=== PATIENT | female | born 1935 | race Hispanic/Latino ===

== ENCOUNTER → 2017-01-19 | Outpatient (CLI) | payer MEDICARE, MEDICAID | LOC: GMAH 11:36 | PROVIDERS: ATTEND Family Medicine | DX: E03.9 Hypothyroidism, unspecified (principal) ==

== ENCOUNTER 2018-01-26 15:23 | Inpatient (IN) | payer MEDICARE, MEDICAID ==
--- NOTE | 2018-01-26 15:32 | ED.PDOC ---
History of Present Illness - General Chief Complaint: General Stated Complaint: diarrhea/feeling weak Time Seen by Provider: 01/26/18 15:31 Source: patient, family - daughter Exam Limitations: no limitations - History of Present Illness Initial Comments: Noris Weiss 82 y/o female stated that she started having watery diarrhea 2 -3x since monday which had been ongoing till she was seen in er today.Had also N /V starting yesterday and unable to keep anything down today getting weak and with chills and fever.Went to her Md's clinic and was advised to come to er.No recent antibiotic use ,no ill contact,no foreign travel. Timing/Duration: other - see hpi Severity: moderate Improving Factors: nothing Worsening Factors: eating Associated Symptoms: headaches, other - see hpi Allergies/Adverse Reactions: Allergies NO KNOWN ALLERGY Allergy (Unverified 06/14/14 18:14) Home Medications: Ambulatory Orders Oseltamivir Capsule [Tamiflu] 75 mg PO BID #10 cap 08/28/14 Cyclobenzaprine HCl [Flexeril] 10 mg PO TID #15 tab 01/05/15 Naproxen [Naprosyn] 500 mg PO BID #30 tab 01/05/15 Tramadol HCl [Ultram] 50 mg PO Q6H #20 tab 01/05/15 Review of Systems - Review of Systems Constitutional: States: see HPI, chills, fever, malaise EENTM: States: no symptoms reported Respiratory: States: no symptoms reported Cardiology: States: no symptoms reported Gastrointestinal/Abdominal: States: see HPI Genitourinary: States: no symptoms reported Musculoskeletal: States: no symptoms reported All other Systems: Reviewed and Negative, No Change from Baseline Past Medical History (General) - Patient Medical History Hx Seizures: No Hx Stroke: No Hx Dementia: No Hx Asthma: Yes Hx of COPD: No Hx Cardiac Disorders: Yes Hx Congestive Heart Failure: No Hx Pacemaker: No Hx Hypertension: Yes Hx Thyroid Disease: Yes Hx Diabetes: No Hx Gastroesophageal Reflux: No Hx Renal Disease: No Hx of HIV: No Hx MRSA: No Surgical History: other - knee - Vaccination History Hx Influenza Vaccination: Yes - Social History Hx Tobacco Use: Yes Hx Alcohol Use: No - Female History Patient : No Family Medical History - Family History Mother Family History: No Known Hx Family Diabetes: Yes - multiple family memebers Hx Family Cancer: Yes - breast-aunts Physical Exam - Physical Exam General Appearance: Alert, Comfortable, No apparent distress Eye Exam: bilateral normal Ears, Nose, Throat: hearing grossly normal, normal ENT inspection Respiratory: lungs clear, normal breath sounds Cardiovascular/Chest: normal peripheral pulses, regular rate, rhythm, no murmur Peripheral Pulses: radial,right: 2+, radial,left: 2+ Gastrointestinal/Abdominal: non tender, soft, no organomegaly Back Exam: no CVA tenderness, no vertebral tenderness Extremity: no pedal edema, no calf tenderness Neurologic: alert, oriented x 3 Skin Exam: normal color, warm/dry Progress - Progress Progress: 01/26/18 15:50 Vital Signs - 8 hr 01/26/18 15:35 Temperature 98.4 F Pulse Rate [ 74 Left Brachial] Respiratory 20 Rate Blood Pressure 107/54 [Left Arm] O2 Sat by Pulse 97 Oximetry - Results/Orders Results/Orders: 01/26/18 15:41 CLOSTRIDIUM DIFFICILE AG/TOXIN Urgent URINALYSIS Stat 01/26/18 16:27 Magnesium Sulfate Premix 2Gm 2 gm Premix Bag 1 bag IVPB ONCE Laboratory Results - last 24 hr 01/26/18 01/26/18 01/26/18 15:52 15:52 15:52 WBC 16.4 H RBC 3.89 L Hgb 11.6 L Hct 35.1 L MCV 90.3 MCH 29.8 MCHC 33.0 RDW 13.4 Plt Count 133 MPV 10.2 Absolute Neuts (auto) 14.70 H Absolute Lymphs (auto) 0.70 L Absolute Monos (auto) 0.90 H Absolute Eos (auto) 0.10 Absolute Basos (auto) 0.00 Neutrophils % 89.9 H Lymphocytes % 4.3 L Monocytes % 5.3 Eosinophils % 0.4 L Basophils % 0.1 PT 13.5 H INR 1.170 PTT (SP) 43.1 H Sodium 132 L Potassium 4.3 Chloride 103 Carbon Dioxide 20 L Anion Gap 13.3 BUN 33 H Creatinine 1.73 H BUN/Creatinine Ratio 19.1 Random Glucose 100 Serum Osmolality 271.9 L Lactic Acid 0.9 Calcium 8.5 Magnesium 1.0 L Total Bilirubin 1.4 H Direct Bilirubin 0.2 Indirect Bilirubin 1.2 H AST 20 ALT 17 Alkaline Phosphatase 45 Creatine Kinase 118 CK-MB (CK-2) 3.9 CK-MB (CK-2) % Not Reportable Troponin I < 0.02 Serum Total Protein 6.7 Albumin 3.5 Lipase 25 Departure - Departure Clinical Impression: Dehydration, moderate, Hypomagnesemia Nausea & vomiting Qualifiers: Vomiting type: unspecified Vomiting Intractability: unspecified Qualified Code( s): R11.2 - Nausea with vomiting, unspecified Diarrhea Qualifiers: Diarrhea type: unspecified type Qualified Code(s): R19.7 - Diarrhea, unspecified Time of Disposition: 16:58 Disposition: Admit Patient Condition: Fair Departure Forms: Patient Portal Self Enrollment Referrals: Brett De Santiago MD [Primary Care Provider] - 1-2 Weeks Home Medications: Ambulatory Orders Oseltamivir Capsule [Tamiflu] 75 mg PO BID #10 cap 08/28/14 Cyclobenzaprine HCl [Flexeril] 10 mg PO TID #15 tab 01/05/15 Naproxen [Naprosyn] 500 mg PO BID #30 tab 01/05/15 Tramadol HCl [Ultram] 50 mg PO Q6H #20 tab 01/05/15 Decision To Admit - Decistion To Admit Decision to Admit Reason: Admit from ER Decision to Admit Date: 01/26/18 - D/W Davis Duenas-ANP/Hospitalist Decision to Admit Time: 16:56
[2018-01-26] MEDS ORDERED: SODIUM CHLORIDE 0.9% 500ML 500 ML IVS ONE (15:41)
[2018-01-26] MEDS ORDERED: ACETAMINOPHEN 325 MG TAB PO ONE (16:02)
[2018-01-26] MEDS ORDERED: PROMETHAZINE HCL 25 MG TAB PO ONE (16:02)
[2018-01-26] MEDS ORDERED: MAGNESIUM SULFATE PREMIX 2GM 2 GM in PREMIX BAG 1 BAG IVPB ONE ×2 (16:27→20:25)
[2018-01-26] MEDS ORDERED: MAGNESIUM SULFATE PREMIX 2GM 50 ML IVPB ONE ×2 (16:31→20:32)
[2018-01-26] MEDS ORDERED: SODIUM CHLORIDE 0.9% 1000ML 1,000 ML IVS PRN (16:58)
--- NOTE | 2018-01-26 17:14 | HP ---
SUPERVISING PHYSICIAN: Shakir Preciado M.D. CHIEF COMPLAINT: Weakness and diarrhea. HISTORY OF PRESENT ILLNESS: Ms. Weiss is an 82 year-old female reports that she has been having some diarrhea and nausea over the last 4 to 5 days. Monday she started having some vomiting along with diarrhea. She took an Imodium on Monday, felt better on Monday but then again had the recurrence of the same symptoms on Monday. She has continued to have nausea and vomiting on and off for the rest of the week and is unable to keep any significant oral intake down, and has been getting significantly weaker with muscle cramps as well as significantly decreased urine output. She went to the after hours clinic at [facility] and was advised to go to the E. R. for further evaluation. She has not been on any recent antibiotics and denies any family ill contacts with family or friends, and has not had any extensive travel. Initial workup in the E. R. showed that she did have a mild leukocytosis with a white count of 16,400 and a left shift. Chemistries showed a mild hyponatremia with sodium 132, carbon dioxide 20, anion gap was normal at 13, BUN was elevated as well as creatinine with creatinine of 1.73, BUN 33. Magnesium was significantly low at 1.0 with a mildly elevated bilirubin of 1.4 with indirect being 1.2. All other liver functions were otherwise within normal limits as well as lipase. Lactic acid was also within normal limits. She was given a liter of fluids in the E. R. and is now going to be placed in Observation for further treatment and evaluation of dehydration likely secondary to viral gastritis. She was placed in Observation in stable condition. PAST MEDICAL HISTORY: 1. Hypothyroidism on supplementation. 2. Hypertension. 3. Asthma. PAST SURGICAL HISTORY: 1. Hysterectomy. 2. Gastric tumor removal, nonmalignant. 3. 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 HOME MEDICATIONS: 1. Ventolin inhaler 1 puff p.r.n. 2. Levothyroxine 150 mcg daily. 3. Losartan Hydrochlorothiazide 160-25 mg one daily. 4. Carvedilol 3.125 mg b.i.d. 5. Aleve 2 tablets at bedtime. ALLERGIES: NO KNOWN DRUG ALLERGIES. FAMILY HISTORY: Significant for breast cancers, heart attacks, hypertension and diabetes. SOCIAL HISTORY: The patient is . She lives alone in [place]. She did smoke in her younger age but has not smoked for well over 25 years as well as she quit drinking at the same time which was approximately 20 years previously. REVIEW OF SYSTEMS: CONSTITUTIONAL: Notes that she has had a subjective fever, some chills and general malaise as noted in History of Present Illness. HEENT: Denies any headaches, sore throat, nasal congestion or ear aches, but notes that she has had a mild headache today. RESPIRATORY: Denies any shortness of breath, wheezing or cough. CARDIOVASCULAR: No chest pains, palpitations, syncopal episodes or edema. GASTROINTESTINAL: As noted in History of Present Illness, nausea, vomiting and diarrhea. Last reported 24 hours prior to admission. GENITOURINARY: No dysuria, but notes that she has not been going as frequently as she normally does, but no reported hematuria, nocturia or other urinary symptoms. NEUROLOGIC: Denies any ataxia, seizures, or other neurological deficits. PHYSICAL EXAMINATION: VITAL SIGNS: Temperature 98.4 on admission, pulse 74, blood pressure 107/54, respirations 20, satting 97% on room air. Admission weight was 82.9 kg. GENERAL: The patient does appear acutely ill but is in no apparent distress, resting comfortably. HEENT: Tympanic membranes were clear bilaterally. Oropharynx was pink with dry mucosal membranes. No lesions. NECK: Supple, non-tender with full range of motion. No jugular venous distention. CHEST: Lungs were clear to auscultation without any rhonchi, wheezing or rales. CARDIOVASCULAR: Regular rate and rhythm without appreciable murmurs, gallops, or rubs. BACK: She had no CVA tenderness. ABDOMEN: Soft, non-tender with positive bowel sounds. EXTREMITIES: There is no edema, clubbing or cyanosis. NEUROLOGIC: She was alert and oriented times three with no noted weaknesses. LABORATORY: CBC showed a white count of 16,400, hemoglobin 11.6, hematocrit 35.1, platelet count 133 with a differential that showed a left shift. Coagulation studies showed a slightly elevated PT of 13.5, PTT was elevated at 43.1, INR normal at 1.17. Chemistries showed a mild hyponatremia at 132, potassium normal at 4.3, carbon dioxide was low at 20, anion gap was normal at 13.3. BUN was elevated at 33, creatinine 1.73, glucose 100, serum osmolality 271, lactic acid 0.9, calcium normal at 8.5, magnesium was low at 1.0. Total bilirubin was elevated at 1.4 with a direct bilirubin of 1.2. AST, ALT and alkaline phosphatase were both normal. Troponin less than 0.02. Lipase was normal at 25. Urinalysis was pending at time of admission. TSH is pending. RADIOLOGY: Chest x-ray pending at time of admission. ASSESSMENT: 1. Moderate dehydration secondary gastroenteritis likely viral in origin with the patient having poor oral intake. 2. Leukocytosis without an identified infectious source, likely secondary to acute cystitis - UA pending 3. Electrolyte imbalance to include hyponatremia and a severe hypomagnesemia secondary to diarrhea associated with viral gastroenteritis 4. Prerenal azotemia with renal insufficiency resulting from volume depletion with exacerbation due to chronic use of NSAIDs. 5. Hypothyroidism on supplementation. 6. Asthma without any signs of exacerbation. 7. Hypertension, well controlled. PLAN: The patient is going to be placed in Observation status tonight for fluid replacement. Will give her another liter of normal saline and follow this with maintenance fluids of D5 normal saline with 20 of potassium at 125 an hour. Will await her urine to further assess for possible urinary tract infection given that she does have a leukocytosis, but a normal lactic acid. Should she show urine that shows a urinary tract infection, then we will start her on antibiotics but will hold off on any antibiotics until we get that urine completed. She did get 2 grams of magnesium initially in the E. R. I will follow this up with additional 2 grams of magnesium given that she had a significantly low magnesium of 1.0 at time of admission. Will resume her home medications once they have been updated and verified. She will be on DVT prophylaxis as per protocol. Will anticipate length of stay to be 1 to 2 days with anticipating discharging possibly tomorrow. Will plan to reevaluate labs in the morning with a CBC and CMP. Until clinically stable, will continue to monitor and treat appropriately until discharge. #[id number] [facility]
[2018-01-26] MEDS ORDERED: ONDANSETRON INJ 4 MG/2 ML VIAL IV PRN (18:04)
[2018-01-26] MEDS ORDERED: ACETAMINOPHEN 325 MG TAB PO PRN (18:04)
[2018-01-26] MEDS ORDERED: KCL 20MEQ/D5NS 1,000 ML IVS PRN ×2 (18:07→20:24)
[2018-01-26] MEDS ORDERED: PANTOPRAZOLE SODIUM IV 40 MG VIAL IV ONE (18:09)
[2018-01-26] MEDS: IV SET AND CAP CHANGE INJ INJ SCH (18:16)
[2018-01-26] MEDS ORDERED: KCL 20MEQ/D5NS 1,000 ML IVS ONE (18:19)
[2018-01-26] MEDS: SODIUM CHLORIDE 0.9% (FLUSH) 10 ML SYG IV PRN (18:20)
[2018-01-26] MEDS ORDERED: SODIUM CHLORIDE 0.9% 1000ML 1,000 ML IVS ONE (20:23)
[2018-01-26] MEDS: CARVEDILOL 3.125 MG TAB PO SCH (20:53)
[2018-01-26] MEDS ORDERED: NAPROXEN SODIUM 220 MG TAB PO SCH (21:00)
--- NOTE | 2018-01-26 21:18 | PCM.CORE ---
Physician DVT/VTE - Nurse DVT Assessment & Total Each Risk Factor Represents 3 Points: Age over 75 years Each Risk Factor Represents 1 Point: Medical PT at Bed Rest Each Risk Factor is 1 Point: Obesity (BMI >25) DVT Assessment Score: 5 - 5 or more Very High Risk Treatments: Early Ambulation *, Sequential Compression Device Pharmacological: Enoxaparin 40mg SQ Daily
[2018-01-26] MEDS ORDERED: cefTRIAXone SODIUM 1 GM VIAL ONE (22:03)
[2018-01-26] MEDS ORDERED: SODIUM CHL 0.9% 50ML MIN-BAG+ 50 ML IVPB ONE (22:03)
[2018-01-26] MEDS: cefTRIAXone SODIUM 1 GM in SODIUM CHL 0.9% 50ML MIN-BAG+ 50 ML IVPB SCH (22:07)
[2018-01-26] MEDS ORDERED: ENOXAPARIN SODIUM 40 MG/0.4 ML SYG SUBCU SCH (23:00)
[2018-01-27] MEDS ORDERED: NAPROXEN SODIUM 220 MG TAB PO SCH (01:28)
[2018-01-27] MEDS: OMEPRAZOLE CAP 20 MG CAP PO SCH (06:07)
--- NOTE | 2018-01-27 07:54 | RAD ---
Clinical History : febrile; elevated WBC , MAIN Exam : PA and lateral views of the chest 01/26/2018 7:00 PM CDT Comparisons : PA and lateral views of the chest August 28, 2014 CT chest with contrast September 04, 2007 Findings : There are stable emphysematous changes throughout the lungs bilaterally. The lungs are clear without focal consolidation or pleural effusion. The heart is normal in size. The mediastinal contours are normal in appearance. The thoracic spine is age appropriate. The shoulders are unremarkable. Limited evaluation of the upper abdomen demonstrates no gross abnormalities. Impression: 1. No acute cardiopulmonary disease 2. Stable mild emphysema. Electronically signed by: Travis Donald MD 01/27/2018 7:53 AM CDT
[2018-01-27] MEDS: CARVEDILOL 3.125 MG TAB PO SCH ×2 (08:40→20:39)
[2018-01-27] MEDS: VALSARTAN 80 MG TAB PO SCH (08:40)
[2018-01-27] MEDS: hydroCHLOROthiazide 25 MG TAB PO SCH (08:40)
[2018-01-27] MEDS ORDERED: NON-FORMULARY MEDICATION 1 EA MIS (Valsartan-Hydrochlorothiazide [Valsartan/Hydrochlorothi PO SCH (09:00)
[2018-01-27] MEDS ORDERED: LEVOTHYROXINE SODIUM 0.075 MG TAB PO SCH (09:00)
[2018-01-27] MEDS ORDERED: cefTRIAXone SODIUM 1 GM VIAL ONE ×2 (10:09→18:51)
[2018-01-27] MEDS ORDERED: SODIUM CHL 0.9% 50ML MIN-BAG+ 50 ML IVPB ONE ×2 (10:09→18:50)
[2018-01-27] MEDS: cefTRIAXone SODIUM 1 GM in SODIUM CHL 0.9% 50ML MIN-BAG+ 50 ML IVPB SCH ×2 (10:12→21:40)
[2018-01-27] MEDS: KCL 20MEQ/D5NS 1,000 ML IVS PRN ×2 (13:31→20:46)
[2018-01-27] MEDS ORDERED: ENOXAPARIN SODIUM 40 MG/0.4 ML SYG SUBCU ONE (18:51)
[2018-01-27] MEDS: ENOXAPARIN SODIUM 40 MG/0.4 ML SYG SUBCU SCH (20:39)
[2018-01-28] MEDS: OMEPRAZOLE CAP 20 MG CAP PO SCH (06:17)
[2018-01-28] MEDS ORDERED: SODIUM CHL 0.9% 50ML MIN-BAG+ 50 ML IVPB ONE ×2 (09:09→19:24)
[2018-01-28] MEDS ORDERED: cefTRIAXone SODIUM 1 GM VIAL ONE ×2 (09:10→19:24)
[2018-01-28] MEDS: VALSARTAN 80 MG TAB PO SCH (09:18)
[2018-01-28] MEDS: hydroCHLOROthiazide 25 MG TAB PO SCH (09:19)
[2018-01-28] MEDS: BIFIDOBACTERIUM INFANTIS 4 MG CAP PO SCH (09:19)
[2018-01-28] MEDS: cefTRIAXone SODIUM 1 GM in SODIUM CHL 0.9% 50ML MIN-BAG+ 50 ML IVPB SCH ×2 (09:20→22:00)
[2018-01-28] MEDS: SODIUM CHLORIDE 0.9% (FLUSH) 10 ML SYG IV SCH ×2 (09:21→20:40)
[2018-01-28] MEDS ORDERED: ALBUTEROL SULFATE 2.5 MG/3 ML VIAL NEB PRN (11:54)
[2018-01-28] MEDS: ALBUTEROL SULFATE 2.5 MG/3 ML VIAL NEB SCH ×3 (12:40→20:35)
[2018-01-28] MEDS ORDERED: COLCHICINE 0.6 MG TAB PO ONE ×2 (12:44→15:00)
[2018-01-28] MEDS: CARVEDILOL 3.125 MG TAB PO SCH ×2 (13:00→20:30)
--- NOTE | 2018-01-28 14:05 | PN ---
DATE: 01/27/18 SUPERVISING PHYSICIAN: Shakir Preciado M.D. SUBJECTIVE: The patient still feels that she is extremely weak. She has not had any nausea or vomiting or diarrhea. She has had no chest pains. She has increased her oral intake somewhat since admission and has tolerated a regular diet. OBJECTIVE: VITAL SIGNS: temperature 98.2, pulse 66, blood pressure 9/60, respirations 12 with saturation 96% on room air. Weight 84.3 kg. I's and O's show a positive balance of 900 with 1600 in, 700 out. She has had 1 bowel movement. LUNGS: Clear to auscultation. HEART: Regular rate and rhythm. ABDOMEN: Obese but soft, non-tender. Positive bowel sounds. EXTREMITIES: No clubbing, cyanosis or edema. NEUROLOGIC: She is alert and oriented times three. LABORATORY: White count is down to 11,000 with hemoglobin 10.2, hematocrit 31.2 , platelet count showing to be 113,000. Differential does continue to show a left shift. Chemistries today show normal sodium and potassium. Magnesium was up to 1.8. Liver functions all show to be within normal limits. CO2 continues to be low with an anion gap of 8.2 and BUN of 32, creatinine of 1.76 only slightly improved since admission. TSH was pending. Urinalysis did show positive for blood nitrates and leukocyte esterase. Microscopic revealed 1 to 3 RBCs with 10 to 20 WBCs, 5 to 10 epithelials with 4+ bacteria and trace amount of mucous. MICROBIOLOGY: Urine culture is pending. Clostridium Difficile stool pending. RADIOLOGY: No additional radiographic studies since admission. ASSESSMENT: 1. Moderate dehydration secondary to viral gastroenteritis with the patient showing slight improvement with IV fluids and increasing oral intake. 2. Leukocytosis secondary to acute cystitis with some exacerbation from dehydration showing improvement after initiation of antibiotics and IV therapy. 3. Electrolyte imbalance initially to include hyponatremia and hypomagnesemia , resolved after IV replacement felt to be secondary to previous diarrhea associated with viral gastroenteritis. 4. Prerenal azotemia with renal insufficiency showing slight improvement secondary to volume depletion with exacerbation due to chronic NSAID usage. 5. Hypothyroidism on supplementation with TSH pending. 6. Asthma without any signs of exacerbation. 7. Hypertension but hypotensive currently on admission. 8. Normocytic/hypochromic anemia. PLAN: The patient has show very little clinical response initially to treatment. Anticipate at least another 24 to 48 hours of IV antibiotics along with IV fluids. Given that she is showing poor clinical response and has underlying cystitis which could be resulting in similar previous symptoms currently, I am going to change her admission to full admission. She will continue with IV fluids D5 normal saline with 20 of potassium but decrease to 80 an hour. She will be on IV antibiotics for urinary tract infection to include Rocephin 1 gram every 12 hours awaiting final culture results to further target antibiotic therapy. Her home medications have been resumed as appropriate. Will repeat laboratory studies in the morning to include a CMP and a BMP. Again, will anticipate hopefully discharging tomorrow or Monday. Until then, continue to follow and treat appropriately. #[id number] [facility]
--- NOTE | 2018-01-28 16:27 | RAD ---
EXAM DESCRIPTION: Ankle,Left 3 Views CLINICAL HISTORY: 82 years,Female,left ankle pain s/p fall COMPARISON: None. TECHNIQUE: Three views of the left ankle. FINDINGS: The bones are osteopenic. No acute fracture or dislocation is identified. There is a plantar calcaneal spur. Postsurgical changes are visualized in one of the metatarsal bones. There are calcifications in the skin or subcutaneous tissues posteriorly. IMPRESSION: No acute fracture is identified. Electronically signed by: Kolton Miller MD 01/28/2018 4:25 PM CDT
[2018-01-28] MEDS: ENOXAPARIN SODIUM 40 MG/0.4 ML SYG SUBCU SCH (20:40)
[2018-01-28] MEDS: SODIUM CHLORIDE 0.9% (FLUSH) 10 ML SYG IV PRN (22:00)
[2018-01-29] MEDS: OMEPRAZOLE CAP 20 MG CAP PO SCH (06:14)
[2018-01-29] MEDS ORDERED: SODIUM CHL 0.9% 50ML MIN-BAG+ 50 ML IVPB ONE ×3 (07:13→19:24)
[2018-01-29] MEDS ORDERED: cefTRIAXone SODIUM 1 GM VIAL ONE ×3 (07:14→19:24)
--- NOTE | 2018-01-29 08:17 | PN ---
SUPERVISING PHYSICIAN: Shakri Preciado MD DATE: 01/28/18 SUBJECTIVE: The patient is much more alert and more active this morning. She is actually able to move to a beside chair. She notes that her weakness is not quite as extreme as it was yesterday and she is having a little bit better oral intake. She has had no fevers. She does note that her left ankle and foot are extremely painful which is inhibiting her to ambulating to any degree. She denies any history of gout but will check an x-ray and uric acid. OBJECTIVE: VITAL SIGNS: Temperature 98.3, pulse 55, blood pressure 120/70, respirations 18, saturation 98% on room air. Weight 84.0 kg. I&O: Positive balance of 828 with 1380 in and 552 out. Bowel movements continue. GENERAL: The patient appears much more alert today and is in no acute distress. CHEST: Lungs clear to auscultation bilaterally. HEART regular rate and rhythm. ABDOMEN obese and soft, non-tender with positive bowel sounds. EXTREMITIES: No clubbing or cyanosis. There is mild edema noted to the left ankle and some erythema noted over the medial malleolus as well as the great toe. She has some pain on plantar flexion and extension and is unable to put any significant amount of weight on the ankle without resulting in pain. NEUROLOGIC: Alert and oriented x3. LABORATORY: White count now normalized at 10,100. Hemoglobin and hematocrit stable at 10.2 and 30.9. Platelet count 114,000, differential shows a resolving left shift. Chemistries today show a sodium of 140, potassium 5.1, chloride up to 119. BUN 22, creatinine down to 1.36, calcium is at 8.1. TSH was completed yesterday and is less than 0.06 with a free T4 of 0.18 and T4 8.29 which is normal and a free T3 update of 46.9 which is normal. MICROBIOLOGY: Urine culture still pending. RADIOLOGY: X-ray of the left ankle is pending. ASSESSMENT: 1. Moderate dehydration on admission secondary to viral gastroenteritis with the patient showing slight improvement with IV fluids now being saline locked and increasing oral intake. 2. Leukocytosis now to normal baseline status felt to be secondary to acute cystitis with some exacerbation from dehydration improved with IV antibiotics and IV fluids. . 3. Electrolyte imbalance initially to include hyponatremia which is resolved as well hypomagnesemia that has resolved as well after IV replacement now with some mild hyperkalemia secondary to recent infusions which patient is now saline locked. 4. Prerenal azotemia with renal insufficiency continuing to show improvement which was secondary to volume depletion with exacerbation due to chronic NSAID usage with the patient having been taken off NSAIDS. 5. History of hypothyroidism on supplementation with current TSH showing to be low with consideration now for a subclinical hyperthyroidism requiring further management of her thyroid medication upon discharge with the patient having no signs or symptoms referring hyperthyroidism. 6. Asthma without any signs of exacerbation. 7. Hypertension showing to be well controlled. 8. Normocytic/hypochromic anemia showing to be stable and likely secondary to renal insufficiency and exacerbated by chronic acute dehydration and chronic illness. 9. Left ankle pain with concerns for an acute gout episode with uric acid and x -rays pending. PLAN: The patient will continue with IV antibiotics but will saline lock her today. She is encouraged to get up as much as possible. Given that she is having significant pain in the left ankle I will await an x-ray of that ankle as well as a uric acid. I feel like it is probably a gout flare-up, although the patient has no history of gout. Should the uric acid come back elevated, consideration for treatment with Colcrys and avoiding NSAIDS due to her renal function. I will order a PT evaluation in the morning and hopefully be able to discharge the patient home if she is safe and will again target antibiotic therapy once those culture results are back. Until then, she will remain on Rocephin 1 gram every 12 hours. She does live alone and therefore will benefit from a physical therapy evaluation to insure that she is safe to return home at discharge. Will plan to repeat a BMP in the morning. Her CBC is showing to be stable. Until discharge, we will continue to monitor and treat appropriately. #[id number] [facility]
[2018-01-29] MEDS: ALBUTEROL SULFATE 2.5 MG/3 ML VIAL NEB SCH ×3 (08:40→16:45)
[2018-01-29] MEDS: CARVEDILOL 3.125 MG TAB PO SCH ×2 (08:44→21:01)
[2018-01-29] MEDS: hydroCHLOROthiazide 25 MG TAB PO SCH (08:44)
[2018-01-29] MEDS: BIFIDOBACTERIUM INFANTIS 4 MG CAP PO SCH (08:45)
[2018-01-29] MEDS: VALSARTAN 80 MG TAB PO SCH (08:45)
[2018-01-29] MEDS: COLCHICINE 0.6 MG TAB PO SCH (08:45)
[2018-01-29] MEDS: SODIUM CHLORIDE 0.9% (FLUSH) 10 ML SYG IV SCH ×2 (10:18→21:02)
[2018-01-29] MEDS: cefTRIAXone SODIUM 1 GM in SODIUM CHL 0.9% 50ML MIN-BAG+ 50 ML IVPB SCH ×2 (10:19→21:02)
--- NOTE | 2018-01-29 13:57 | PN ---
SUPERVISING PHYSICIAN: Sherman You MD DATE: 01/29/18 SUBJECTIVE: The patient states she feels significantly better today. She has gotten up and walked in the [place]. Physical therapy is working with her. She is not really having any nausea or vomiting. She is tolerating her p.o. meals well. OBJECTIVE: VITAL SIGNS: Blood pressure 127/66. Heart rate 56. Respiratory rate 16. Temperature 98.0. Oxygen saturation 97%. GENERAL: Ms. Weiss is an 82-year-old in no active distress currently. NEUROLOGIC: Alert and oriented. LUNGS: Clear to auscultation bilaterally. CARDIOVASCULAR: Regular rate and rhythm. Normal S1, S2. ABDOMEN: Soft. Positive bowel sounds. No tenderness to palpation. EXTREMITIES: Lower extremities with no edema. Pulses 2+. Capillary refill is less than 2 seconds. LABORATORY: Chemistry shows sodium 141, potassium 4.9, chloride 113, PO2 22, BUN 15, creatinine 1.20. Glucose 103, calcium 8.6, uric acid level yesterday was 9.3. ASSESSMENT: 1. Moderate dehydration with acute kidney injury. 2. Viral gastroenteritis, improved. 3. Leukocytosis, improved. 4. Electrolyte imbalance, improved. 5. History of hypothyroidism on supplementation with current low TSH. 6. Asthma with no acute exacerbation. 7. Hypertension, controlled. 8. Anemia, stable. 9. Left ankle pain, likely gout, but is improved after the colchicine. 10. Urinary tract infection. PLAN: Continue current antibiotics, which are ceftriaxone q.12h. Her labs have improved and her physical function is improved as well. She is tolerating her diet well. The urine culture has not resulted in any definitive bacteria as of yet. Therefore, if she remains stable overnight and labs are stable in the morning, she will likely go home on cephalosporin. Additionally, her ankle pain is better after the colchicine. Her uric acid level was elevated. Therefore, after this acute event, she can likely be placed on allopurinol. She will followup with Dr. De Santiago as an outpatient and he can place her on appropriate medications at that time. #[id number] [facility]
[2018-01-29] MEDS: IV SET AND CAP CHANGE INJ INJ SCH (21:00)
[2018-01-29] MEDS: ENOXAPARIN SODIUM 40 MG/0.4 ML SYG SUBCU SCH (21:02)
[2018-01-30 02:52] VITALS: TEMP 97.9
[2018-01-30] MEDS: OMEPRAZOLE CAP 20 MG CAP PO SCH (06:23)
[2018-01-30 06:46] VITALS: BP 134/70
[2018-01-30] MEDS ORDERED: SODIUM CHL 0.9% 50ML MIN-BAG+ 0 ML IVPB ONE (07:26)
[2018-01-30] MEDS ORDERED: cefTRIAXone SODIUM 1 GM VIAL ONE (07:27)
[2018-01-30] MEDS: VALSARTAN 80 MG TAB PO SCH (08:32)
[2018-01-30] MEDS: CARVEDILOL 3.125 MG TAB PO SCH (08:32)
[2018-01-30] MEDS: hydroCHLOROthiazide 25 MG TAB PO SCH (08:32)
[2018-01-30] MEDS: BIFIDOBACTERIUM INFANTIS 4 MG CAP PO SCH (08:32)
[2018-01-30] MEDS: COLCHICINE 0.6 MG TAB PO SCH (08:32)
--- NOTE | 2018-01-30 11:10 | DS ---
SUPERVISING PHYSICIAN: Sherman You MD ADMISSION DIAGNOSIS: 1. Moderate dehydration secondary to gastroenteritis. 2. Leukocytosis secondary to urinary tract infection. 3. Electrolyte imbalance. 4. Acute kidney injury. 5. Hypothyroidism. 6. Asthma without exacerbation. 7. Hypertension. DISCHARGE DIAGNOSIS: 1. Moderate dehydration secondary to gastroenteritis. 2. Leukocytosis secondary to urinary tract infection, Klebsiella oxytoca which is pansensitive except to ampicillin. 3. Electrolyte imbalance. 4. Acute kidney injury. 5. Hypothyroidism. 6. Asthma without exacerbation. 7. Hypertension. HOSPITAL COURSE: Ms. Weiss is an 82-year-old female who came to the hospital with diarrhea and nausea for 4 to 5 days prior to admission. She also developed some vomiting. She took some Imodium on Monday prior to admission, but there was no significant improvement in symptoms. It pretty much resumed on Monday. She went to the clinic to be seen, but then was referred to the Emergency Room for further evaluation. In the Emergency Room, she was noted to have a mild leukocytosis of 16.4. She was found to have some hyponatremia at 134. BUN and creatinine were elevated as well at 33 and 1.73 respectively. Due to these findings, she was referred for admission for viral gastroenteritis with acute kidney injury secondary to dehydration. She was also noted to be quite weak. She was given IV fluids and was also found to have a urinary tract infection, so was started on Rocephin IV. Cultures were done. She continued to step-santos improve throughout the admission regarding her labs. She remained quite weak until Monday. Physical therapy did start to work with her and she is able to increase her activity. She was also noted to have some ankle pain which at the time was evaluated and noted to likely be from gout. Her uric acid was elevated at 9.6. Therefore, she was started on colchicine and had subsequent improvement in her symptoms. Her thyroid studies were also done and her TSH was actually noted to be low. She is on 150 mcg per day of levothyroxine. Due to her improvement in clinical status as well as her labs, on the day of discharge, 01/30/18, she is stable condition, able to walk the johnson without any difficulties. I have discharged her on Cipro which is one the sensitive abnormalities to her Klebsiella urinary tract infection. Additionally , I have written for colchicine to be taken on a daily basis until she is evaluated by Dr. De Santiago as an outpatient. He may consider allopurinol or Uloric instead of the colchicine. Activity is to be increased as tolerated. She does have home health coming to see her at home. Diet restrictions, I informed her to stay on a bland diet for the next few days or so and advance as tolerated. Followup with Dr. De Santiago on 01/31/18 at 3 PM. #[id number] [facility]
[2018-01-30 12:13] VITALS: O2SAT 98
[2018-01-30] MEDS ORDERED: COLCHICINE 0.6 MG TAB PO ONE (14:00)
== END 2018-01-30 09:46 | disposition home health service (06) | DRG 683 ==
LOC: ER 15:23 → MS 17:12 → OBSVTOIN 01-27 13:16
PROVIDERS: ADMIT Nurse Practitioner; ATTEND Nurse Practitioner Family
DX: N17.9 Acute kidney failure, unspecified (principal); N30.00 Acute cystitis without hematuria; E87.1 Hypo-osmolality and hyponatremia; A08.4 Viral intestinal infection, unspecified; E86.0 Dehydration; E83.42 Hypomagnesemia; E87.5 Hyperkalemia; T39.395A Adverse effect of other nonsteroidal anti-inflammatory drugs [NSAID], initial encounter; E03.9 Hypothyroidism, unspecified; J45.909 Unspecified asthma, uncomplicated; I10 Essential (primary) hypertension; D50.9 Iron deficiency anemia, unspecified; D63.8 Anemia in other chronic diseases classified elsewhere; R53.1 Weakness; M10.9 Gout, unspecified; E66.9 Obesity, unspecified; B96.89 Other specified bacterial agents as the cause of diseases classified elsewhere; Z16.11 Resistance to penicillins; Z96.652 Presence of left artificial knee joint; Z87.891 Personal history of nicotine dependence; Y92.009 Unspecified place in unspecified non-institutional (private) residence as the place of occurrence of the external cause; Z79.1 Long term (current) use of non-steroidal anti-inflammatories (NSAID); Z79.891 Long term (current) use of opiate analgesic; Z79.899 Other long term (current) drug therapy; Z68.30 Body mass index [BMI] 30.0-30.9, adult

== ENCOUNTER → 2018-02-19 | Outpatient (CLI) | payer MEDICARE, MEDICAID | LOC: GMAH 11:40 | PROVIDERS: ATTEND Family Medicine | DX: M10.9 Gout, unspecified (principal) ==

== ENCOUNTER → 2018-06-18 | Outpatient (CLI) | payer MEDICARE, MEDICAID ==
--- NOTE | 2018-06-18 16:18 | CT ---
EXAM DESCRIPTION: Head CLINICAL HISTORY: LACERATION OF HEAD COMPARISON: None available TECHNIQUE: Noncontrast head CT was performed with routine protocol. FINDINGS: Normal ordaz-white matter differentiation. Prominent ventricles and sulci are noted with asymmetry unchanged from previous study. Findings are thought to be related to senescent volume loss with chronic microvascular ischemic changes in the white matter. No high density hemorrhage, focal edema or shift of the midline. No sulcal effacement. Normal orbital contents. Basilar cisterns appear clear. Intact calvarium with no fracture or lytic lesion. Normal aeration of tympanic cavities and mastoid air cells. No fluid levels in the paranasal sinuses. Skull base appears intact. Symmetrical internal auditory canals. IMPRESSION: No acute intracranial pathologic process. This exam was performed according to our departmental dose-optimization program, which includes automated exposure control, adjustment of the mA and/or kV according to patient size and/or use of iterative reconstruction technique. Total DLP equals 859.97 mGycm. Electronically signed by: Riky Noble MD 06/18/2018 4:17 PM CDT
== END ==
LOC: CT 15:37
PROVIDERS: ATTEND Nurse Practitioner Family
DX: S01.91XA Laceration without foreign body of unspecified part of head, initial encounter (principal)

== ENCOUNTER 2018-09-11 21:42 | Emergency (ER) | payer MEDICARE, MEDICAID ==
--- NOTE | 2018-09-11 22:18 | RAD ---
CLINICAL HISTORY: injured wrist COMPARISON: None. TECHNIQUE: XR WRIST 3 OR MORE VIEWS 09/11/2018 9:54 PM [facility] FINDINGS: There is a nondisplaced, impacted fracture of the distal radius. There are extensive degenerative changes at the base of the first metacarpal. There is moderate soft tissue swelling overlying the distal forearm. IMPRESSION: Impacted distal radius fracture. Electronically signed by: Aly Baca MD 09/11/2018 10:17 PM [facility]
[2018-09-11] MEDS ORDERED: ACETAMINOPHEN W/COD #3 TAB 1 EA TAB PO ONE ×2 (22:29→22:31)
--- NOTE | 2018-09-11 23:37 | ED.PDOC ---
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 The wrist has swollen and she has throbbing pain in the wrist. The pain mildly worse with supination and pronation and moderately worse with flexion and extension of the wrist, However, she moves the hand and wrist spontaneously. No other pain or complaints. Timing/Duration: 4-6 hours Severity: moderate Improving Factors: rest Worsening Factors: movement Associated Symptoms: denies symptoms Allergies/Adverse Reactions: Allergies NO KNOWN ALLERGY Allergy (Verified 01/26/18 17:27) Home Medications: Ambulatory Orders Albuterol Inhaler [Ventolin Hfa Inhaler] 1 puff INH PRN PRN 01/26/18 Carvedilol 3.125 mg PO BID 01/26/18 Levothyroxine Sodium 150 mcg PO DAILY 01/26/18 Naproxen Sodium [Aleve] 2 each PO BEDTIME 01/26/18 Valsartan-Hydrochlorothiazide [Valsartan/Hydrochlorothia 160-25 mg] 1 each PO DAILY 01/26/18 Acetaminophen W/ Codeine [Tylenol W/ CODEINE #3] 1 ea PO Q6HRS PRN #20 09/11/18 Meloxicam 15 mg PO DAILY 09/11/18 Review of Systems - Review of Systems Constitutional: States: no symptoms reported EENTM: States: no symptoms reported Respiratory: States: no symptoms reported Cardiology: States: no symptoms reported Gastrointestinal/Abdominal: States: no symptoms reported Genitourinary: States: no symptoms reported Musculoskeletal: States: see HPI Skin: States: no symptoms reported Neurological: States: no symptoms reported Endocrine: States: no symptoms reported Hematologic/Lymphatic: States: no symptoms reported Past Medical History (General) - Patient Medical History Hx Seizures: No Hx Stroke: No Hx Dementia: No Hx Asthma: Yes Hx of COPD: No Hx Cardiac Disorders: Yes Hx Congestive Heart Failure: No Hx Pacemaker: No Hx Hypertension: Yes Hx Thyroid Disease: Yes Hx Diabetes: No Hx Gastroesophageal Reflux: No Hx Renal Disease: No Hx of HIV: No Hx MRSA: No - Vaccination History Hx Influenza Vaccination: Yes Hx Pneumococcal Vaccination: No - Social History Hx Tobacco Use: Yes Hx Alcohol Use: No Hx Substance Use: No Hx Physical Abuse: No Hx Emotional Abuse: No - Female History Patient is a Female of Child Bearing Age (10 -59 yrs old): No Patient : No - Triage Comment ED Triage Comment: pain and swelling to left wrist after falling onto it around 1830 tonight Family Medical History - Family History Mother Family History: No Known Hx Family Diabetes: Yes - multiple family memebers Hx Family Cancer: Yes - breast-aunts Physical Exam - Physical Exam General Appearance: Alert Respiratory: lungs clear, normal breath sounds Cardiovascular/Chest: normal peripheral pulses, regular rate, rhythm Peripheral Pulses: radial,right: 2+, radial,left: 2+ Gastrointestinal/Abdominal: normal bowel sounds, non tender, soft Extremity: other - Mild edema of the left wrist. TTP over the distal radius. Capillary refill at the nailbeds is less than 2 seconds. Patient has 5/5 strength to flexion/extension/adduction/abduction of the fingers and thumb. Full sensation throughout the entire left hand, wrist, and forearm. Progress - Progress Progress: 09/11/18 23:39 Radiographs of the left wrist showed a non-displaced impacted fracture of the distal radius. Patient was given a Tylenol #3 shortly after arrival. Sugar tong splint applied. Patient instructed to see an orthopedic surgeon in 3 days. Care instructions given. E.R. warnings given. Questions were elicited and answered. Patient voiced understanding and agreement with the plan. Given RX for tylenol #3. Departure - Departure Clinical Impression: Fracture of radius Disposition: Discharge to Home or Self Care Condition: Good Departure Forms: ED Discharge - Pt. Copy, Patient Portal Self Enrollment Instructions: Radius Fracture (DC) Diet: resume usual diet Activity: other - rest the left forearm and wrist. Referrals: Brett De Santiago MD [Primary Care Provider] - 1-2 Weeks Prescriptions: Acetaminophen W/ Codeine [Tylenol W/ CODEINE #3] 1 ea PO Q6HRS PRN #20 PRN Reason: Pain -- Mild To Moderate Home Medications: Ambulatory Orders Albuterol Inhaler [Ventolin Hfa Inhaler] 1 puff INH PRN PRN 01/26/18 Carvedilol 3.125 mg PO BID 01/26/18 Levothyroxine Sodium 150 mcg PO DAILY 01/26/18 Naproxen Sodium [Aleve] 2 each PO BEDTIME 01/26/18 Valsartan-Hydrochlorothiazide [Valsartan/Hydrochlorothia 160-25 mg] 1 each PO DAILY 01/26/18 Acetaminophen W/ Codeine [Tylenol W/ CODEINE #3] 1 ea PO Q6HRS PRN #20 09/11/18 Meloxicam 15 mg PO DAILY 09/11/18 Additional Instructions: See an orthopedic surgeon of your choice in three days. Rest the left forearm and wrist. Take medication as prescribed. Return to the E.R. for loss of sensation in the left hand or increased swelling and pain.
[2018-09-12 00:01] VITALS: BP 155/71; O2SAT 98
[2018-09-12 00:03] VITALS: TEMP 98.1
== END 2018-09-12 00:03 | disposition home or self-care (01) ==
LOC: ER 21:42
DX: S52.502A Unspecified fracture of the lower end of left radius, initial encounter for closed fracture (principal); J45.909 Unspecified asthma, uncomplicated; I51.9 Heart disease, unspecified; I10 Essential (primary) hypertension; E07.9 Disorder of thyroid, unspecified; Z87.891 Personal history of nicotine dependence; Z79.899 Other long term (current) drug therapy; W19.XXXA Unspecified fall, initial encounter; Y92.9 Unspecified place or not applicable

== ENCOUNTER → 2018-09-20 | Outpatient (CLI) | payer MEDICARE, MEDICAID ==
--- NOTE | 2018-09-20 11:08 | RAD ---
EXAM DESCRIPTION: Wrist,Left 3 Views CLINICAL HISTORY: 83 years, Female, CLOSED FX OF DISTAL RADIUS COMPARISON: September 11, 2018 TECHNIQUE: Three views left wrist FINDINGS: Follow-up examination demonstrates the impacted fracture of the distal radius with cortical step-offs remaining. Mild endosteal sclerosis is suggested with no significant change in alignment. Mature bony union is not yet apparent. Severe hypertrophic degenerative changes at the base of the thumb and the base of the index finger at the carpal metacarpal articulation is unchanged. No carpal dislocation is seen. The distal ulna appears intact. IMPRESSION: 1. Impacted fracture of the distal radius with mild sclerosis at the fracture line representing overlapping bony fragments or early endosteal healing which or bony union is not yet apparent. 2. Stable severe hypertrophic degenerative changes base of the thumb and index finger at the carpal metacarpal articulation Electronically signed by: Shakir Murrell MD 09/20/2018 11:07 AM [facility] [place]
== END ==
LOC: RAD 07:06
PROVIDERS: ATTEND Orthopaedic Surgery
DX: S52.502D Unspecified fracture of the lower end of left radius, subsequent encounter for closed fracture with routine healing (principal)

== ENCOUNTER → 2018-10-04 | Outpatient (CLI) | payer MEDICARE, MEDICAID ==
--- NOTE | 2018-10-04 11:17 | RAD ---
EXAM DESCRIPTION: Wrist,Left 3 Views CLINICAL HISTORY: 83 years Female, FRACTURE OF A LOWER END OF RADIUS LEFT COMPARISON: September 20, 2018. FINDINGS: The visualized bones are well-mineralized.No acute fracture or dislocation. Fracture of the distal radius appears unchanged. Severe degenerative changes are identified in the first carpometacarpal joint. The soft tissues appear grossly unremarkable. IMPRESSION: Distal radius fracture appears unchanged compared to prior examination. Electronically signed by: Randee Saavedra MD 10/04/2018 11:15 AM [facility]
== END ==
LOC: RAD 07:00
PROVIDERS: ATTEND Orthopaedic Surgery
DX: S52.502D Unspecified fracture of the lower end of left radius, subsequent encounter for closed fracture with routine healing (principal)

== ENCOUNTER → 2018-10-15 | Outpatient (CLI) | payer MEDICARE, MEDICAID | LOC: GMAH 10:38 | PROVIDERS: ATTEND Family Medicine | DX: M25.579 Pain in unspecified ankle and joints of unspecified foot (principal) ==

== ENCOUNTER → 2018-11-01 | Outpatient (CLI) | payer MEDICARE, MEDICAID ==
--- NOTE | 2018-11-01 09:34 | RAD ---
EXAM DESCRIPTION: Wrist,Left 3 Views CLINICAL HISTORY: CLOSED FRACTURE OF DISTAL END RADIUS LEFT COMPARISON: October 04, 2018 IMPRESSION: 3 views of the left wrist again demonstrate an impacted, comminuted, intra-articular fracture of the distal radius that appears unchanged in positioning compared to previous exam. 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 Nondisplaced transverse fracture at the base of the ulnar styloid process is more pronounced on today's exam than previous. 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 Electronically signed by: Elias Lentz MD 11/01/2018 9:30 AM [facility]
== END ==
LOC: RAD 07:37
PROVIDERS: ATTEND Orthopaedic Surgery
DX: S52.502D Unspecified fracture of the lower end of left radius, subsequent encounter for closed fracture with routine healing (principal); S52.202D Unspecified fracture of shaft of left ulna, subsequent encounter for closed fracture with routine healing; M19.042 Primary osteoarthritis, left hand

== ENCOUNTER → 2018-11-19 | Outpatient (CLI) | payer MEDICARE, MEDICAID ==
--- NOTE | 2018-11-19 10:40 | RAD ---
EXAM DESCRIPTION: Wrist,Left 3 Views CLINICAL HISTORY: 83 years Female, S52.502D COMPARISON: Left wrist radiographs 11/01/2018 TECHNIQUE: 3 views of the left wrist. IMPRESSION: Unchanged impacted and comminuted fracture through the distal radius with increased periosteal reaction and increasing sclerosis suggestive of healing. Transverse fracture at the base of the ulnar styloid demonstrates new mild ulnar angulation with 1 to 2 mm separation at the fracture line. Increased sclerosis along the fracture site suggestive of healing as well. Advanced arthropathy of the first carpal metacarpal joint. No radiographically apparent soft tissue abnormality. Electronically signed by: Mendel Alonso MD 11/19/2018 10:37 AM CDT
== END ==
LOC: RAD 08:17
PROVIDERS: ATTEND Orthopaedic Surgery
DX: S52.502D Unspecified fracture of the lower end of left radius, subsequent encounter for closed fracture with routine healing (principal); S52.202D Unspecified fracture of shaft of left ulna, subsequent encounter for closed fracture with routine healing; M12.842 Other specific arthropathies, not elsewhere classified, left hand

== ENCOUNTER → 2020-07-28 | Outpatient (CLI) | payer MEDICARE, MEDICAID ==
--- NOTE | 2020-07-29 10:57 | RAD ---
EXAM DESCRIPTION: Barium Swallow: Rad-Fluoroscopy. CLINICAL HISTORY: dysphagia. More difficulty with solid food than liquids. COMPARISON: None. TECHNIQUE: Fluoroscopy performed by Dr. Laguna The patient swallowed barium pill with water. The patient swallowed heavy density barium under fluoroscopic visualization. The images were obtained with the patient standing AP and lateral and horizontal. Patient drank medium density barium through a straw in the semi-prone position. 98 fluoroscopic cine loop images. Eight single static fluoroscopic images. Total fluoroscopy time was 3.7 minutes. DAP: 30.1 Gy-cm2.. FINDINGS: When Patient swallowed the barium pill with water, the pill demonstrated normal transit from the oral cavity to the stomach. Minimal delay in the oral cavity when swallowing thin barium. No laryngeal penetration or aspiration. No mass effect. Minimal dilation of the mid and distal esophagus increases distally. Secondary and tertiary contractions in the mid and distal third of the esophagus. Intraesophageal reflux when the patient is rolling in the horizontal position. Sliding hiatal hernia. No mass effect. Moderate gastroesophageal reflux from the stomach through the hiatal hernia into the esophagus, in the supine position. No mass effect on the stomach or esophagus. No obstruction. No gross mucosal lesions in the stomach. Large diverticulum in the second-third segment of the duodenum. IMPRESSION: 1. Minimal delay in swallowing of thin barium from the oral cavity to the laryngeal region with no penetration or aspiration. No delay in transit time through the esophagus. Secondary and tertiary contractions in the mid and distal esophagus increase when rolling in the horizontal position. No mass effect. 2. Small sliding hiatal hernia; moderate gastroesophageal reflux in the supine position. Patient at risk for aspiration. 3. No gross mucosal lesions in the stomach. No gastroduodenal obstruction. No mass effect. 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 Electronically signed by: Constantino Laguna MD 07/29/2020 10:55 AM [facility]
== END ==
LOC: RAD 09:06
PROVIDERS: ATTEND Family Medicine Sports Medicine
DX: R13.10 Dysphagia, unspecified (principal); K44.9 Diaphragmatic hernia without obstruction or gangrene; K21.9 Gastro-esophageal reflux disease without esophagitis; K57.10 Diverticulosis of small intestine without perforation or abscess without bleeding